=== PATIENT | female | born 1975 | race Caucasian/White ===

== ENCOUNTER 2017-02-14 12:17 | Emergency (ER) | payer SELFPAY ==
[~2017-02-14] VITALS: Ht 160 cm; Wt 62.0 kg
[2017-02-14] MEDS ORDERED: ONDANSETRON 4MG ODT PO ONE (15:30)
[2017-02-14 15:36] LABS: CLARITY URINE CLEAR (CLEAR); COLOR URINE YELLOW (YELLOW); GLUCOSE URINE NEGATIVE (NEGATIVE); KETONES URINE NEGATIVE (NEGATIVE); LEUKOCYTE ESTERASE URINE TRACE (NEGATIVE); NITRITE URINE NEGATIVE (NEGATIVE); OCCULT BLOOD URINE TRACE (NEGATIVE); PH URINE 5.5 (4.5-8.0); PROTEIN URINE NEGATIVE (NEGATIVE); SPECIFIC GRAVITY URINE 1.014 (1.005-1.030); UROBILINOGEN URINE 0.2 E.U./dL (0.2-1.0)
[2017-02-14 15:47] LABS: HCG SCREEN POSITIVE
[2017-02-14 15:56] LABS: BACTERIA URINE 1+; RBC URINE 0-2 /hpf (0-2); SQUAMOUS EPITHELIAL CELL URINE FEW /lpf (RARE/1+); WBC URINE 0-2 /hpf (0-2)
[2017-02-14 16:25] VITALS: BP 118/66
== END 2017-02-14 16:25 | disposition home or self-care (01) ==
LOC: ER 12:19
DX: O23.41 Unspecified infection of urinary tract in pregnancy, first trimester (principal); N39.0 Urinary tract infection, site not specified; O26.891 Other specified pregnancy related conditions, first trimester; R11.0 Nausea; Z3A.01 Less than 8 weeks gestation of pregnancy
CPT/HCPCS: 81001; 84703; 99283; Q0162; Z7610

== ENCOUNTER 2017-02-18 03:50 | Emergency (ER) | payer SELFPAY ==
[~2017-02-18] VITALS: Ht 162.6 cm; Wt 61.9 kg
[2017-02-18] MEDS ORDERED: ACETAMINOPHEN 325MG TABLET PO STA (06:03)
[2017-02-18 06:27] LABS: BASOPHILS % 1.1 % (0.0-2.0); EOSINOPHILS % 0.5 % (0.0-5.0); HEMATOCRIT. 39.5 % (36.0-48.0); HEMOGLOBIN. 13.3 g/dL (12.0-16.0); LYMPHOCYTES % 14.1 % (20.0-50.0); MEAN CORPUSCULAR HEMOGLOBIN 29.6 pg (28.0-32.0); MEAN CORPUSCULAR HGB CONC 33.7 g/dL (31.0-37.0); MEAN CORPUSCULAR VOLUME 87.8 fL (81.0-99.0); MEAN PLATELET VOLUME 7.5 fl (7.4-10.4); MONOCYTES % 4.4 % (2.0-8.0); NEUTROPHILS % 79.9 % (40.0-76.0); PLATELET 336 x1000/uL (130-400); RED CELL DISTRIBUTION WIDTH 13.8 % (11.6-14.6); WHITE BLOOD COUNT 9.9 x1000/uL (4.5-11.0)
[2017-02-18 06:31] LABS: CHLORIDE 104 mEq/L (98-107); INDEX HEMOLYSI 1 (1-3); INDEX ICTERIC 1 (1-4); INDEX LIPEMIC 1 (1-3)
[2017-02-18 06:38] LABS: ANION GAP 13; CALCIUM 8.6 mg/dL (8.5-10.1); CARBON DIOXIDE 26 mEq/L (21-32); UREA NITROGEN BLOOD 7 mg/dL (7-21); eGFR > 60 mL/min (>60)
[2017-02-18 06:43] LABS: B-HCG QUANTITATIVE 15 mIU/mL (<3)
[2017-02-18 06:44] LABS: CLARITY URINE TURBID (CLEAR); COLOR URINE RED (YELLOW); GLUCOSE URINE NEGATIVE (NEGATIVE); KETONES URINE NEGATIVE (NEGATIVE); LEUKOCYTE ESTERASE URINE 3+ (NEGATIVE); NITRITE URINE POSITIVE (NEGATIVE); OCCULT BLOOD URINE 2+ (NEGATIVE); PROTEIN URINE 2+ (NEGATIVE); SPECIFIC GRAVITY URINE 1.022 (1.005-1.030); UROBILINOGEN URINE 0.2 E.U./dL (0.2-1.0)
[2017-02-18 07:11] LABS: RBC URINE TNTC /hpf (0-2); WBC URINE 15-25 /hpf (0-2)
[2017-02-18 07:15] LABS: SQUAMOUS EPITHELIAL CELL URINE 1+ /lpf (RARE/1+)
[2017-02-18 07:32] LABS: BACTERIA URINE 1+
[2017-02-18] MEDS ORDERED: HYDROCODONE/ACETAMINOPHEN 5/325MG TABLET PO ONE (09:00)
[2017-02-18 09:04] VITALS: BP 121/71
== END 2017-02-18 09:05 | disposition home or self-care (01) ==
LOC: ER 03:50
DX: O03.9 Complete or unspecified spontaneous abortion without complication (principal); N39.0 Urinary tract infection, site not specified; R10.2 Pelvic and perineal pain; R03.0 Elevated blood-pressure reading, without diagnosis of hypertension
CPT/HCPCS: 36415; 76801; 76817; 80048; 81001; 81025; 84702; 85025; 86850; 86900; 86901; 99285; Z7610

== ENCOUNTER 2018-03-20 20:27 | Emergency (ER) | payer MEDICAID ==
[~2018-03-20] VITALS: Ht 162.6 cm; Wt 64.0 kg
[2018-03-21] MEDS ORDERED: ACETAMINOPHEN 325MG TABLET PO STA (01:22)
[2018-03-21 02:12] LABS: CLARITY URINE CLEAR (CLEAR); COLOR URINE YELLOW (YELLOW); KETONES URINE NEGATIVE (NEGATIVE); LEUKOCYTE ESTERASE URINE 2+ (NEGATIVE); NITRITE URINE NEGATIVE (NEGATIVE); OCCULT BLOOD URINE 3+ (NEGATIVE); PH URINE 6.5 (4.5-8.0); PROTEIN URINE NEGATIVE (NEGATIVE); SPECIFIC GRAVITY URINE 1.018 (1.005-1.030); UROBILINOGEN URINE 0.2 E.U./dL (0.2-1.0)
[2018-03-21 02:41] LABS: BASOPHILS % 0.4 % (0.0-2.0); EOSINOPHILS % 0.7 % (0.0-5.0); HEMATOCRIT. 31.3 % (36.0-48.0); HEMOGLOBIN. 10.8 g/dL (12.0-16.0); LYMPHOCYTES % 19.5 % (20.0-50.0); MEAN CORPUSCULAR HEMOGLOBIN 30.1 pg (28.0-32.0); MEAN CORPUSCULAR VOLUME 87.3 fL (81.0-99.0); MEAN PLATELET VOLUME 7.4 fl (7.4-10.4); MONOCYTES % 5.5 % (2.0-8.0); NEUTROPHILS % 73.9 % (40.0-76.0); PLATELET 399 x1000/uL (130-400); RED BLOOD CELL COUNT 3.59 mill/uL (4.2-5.4)
[2018-03-21 02:47] LABS: CHLORIDE 107 mEq/L (98-107)
[2018-03-21 02:50] LABS: PROTHROMBIN TIME 10.4 sec (9.4-11.6)
[2018-03-21 03:10] LABS: B-HCG QUANTITATIVE 22937 mIU/mL (<3)
[2018-03-21 04:45] VITALS: BP 100/60
== END 2018-03-21 04:45 | disposition home or self-care (01) ==
LOC: EDBD → ER 20:27
DX: O20.0 Threatened abortion (principal); O23.41 Unspecified infection of urinary tract in pregnancy, first trimester; Z3A.12 12 weeks gestation of pregnancy
CPT/HCPCS: 36415; 76805; 80053; 81003; 81025; 84702; 85025; 85610; 86900; 87086; 99285

== ENCOUNTER 2018-03-21 22:28 | Emergency (ER) | payer MEDICAID ==
[~2018-03-21] VITALS: Ht 165.1 cm; Wt 64.0 kg
[2018-03-22] MEDS ORDERED: SODIUM CHLORIDE 0.9% 1,000 ML IV ONE (00:37)
[2018-03-22 01:07] LABS: BASOPHILS % 0.2 % (0.0-2.0); EOSINOPHILS % 0.2 % (0.0-5.0); HEMATOCRIT. 32.7 % (36.0-48.0); LYMPHOCYTES % 8.9 % (20.0-50.0); MEAN CORPUSCULAR HEMOGLOBIN 29.4 pg (28.0-32.0); MEAN CORPUSCULAR VOLUME 87.4 fL (81.0-99.0); MEAN PLATELET VOLUME 7.2 fl (7.4-10.4); MONOCYTES % 2.9 % (2.0-8.0); NEUTROPHILS % 87.8 % (40.0-76.0); PLATELET 399 x1000/uL (130-400); RED BLOOD CELL COUNT 3.74 mill/uL (4.2-5.4); RED CELL DISTRIBUTION WIDTH 13.9 % (11.6-14.6)
[2018-03-22 01:12] LABS: CHLORIDE 106 mEq/L (98-107)
[2018-03-22 01:15] LABS: PROTHROMBIN TIME 10.1 sec (9.4-11.6)
[2018-03-22 01:24] LABS: CLARITY URINE CLEAR (CLEAR); COLOR URINE YELLOW (YELLOW); KETONES URINE NEGATIVE (NEGATIVE); LEUKOCYTE ESTERASE URINE 2+ (NEGATIVE); NITRITE URINE NEGATIVE (NEGATIVE); OCCULT BLOOD URINE 3+ (NEGATIVE); PH URINE 5.5 (4.5-8.0); PROTEIN URINE 1+ (NEGATIVE); SPECIFIC GRAVITY URINE 1.014 (1.005-1.030); UROBILINOGEN URINE 0.2 E.U./dL (0.2-1.0)
[2018-03-22 01:35] LABS: B-HCG QUANTITATIVE 22683 mIU/mL (<3)
[2018-03-22 01:42] LABS: *AMPHETAMINES SCREEN URINE NEGATIVE (NEGATIVE)
[2018-03-22 01:43] LABS: *BARBITURATES SCREEN URINE NEGATIVE (NEGATIVE); *BENZODIAZEPINES SCREEN URINE NEGATIVE (NEGATIVE); *COCAINE SCREEN URINE NEGATIVE (NEGATIVE); METHADONE URINE SCREEN NEGATIVE (NEGATIVE); OPIATES URINE SCREEN NEGATIVE (NEGATIVE); PHENCYCLIDINE URINE SCREEN NEGATIVE (NEGATIVE)
[2018-03-22 01:44] LABS: CANNABINOID URINE SCREEN NEGATIVE (NEGATIVE)
[2018-03-22] MEDS ORDERED: CEFTRIAXONE 1 G PREMIX 50 ML IV NR (03:00)
[2018-03-22 04:35] VITALS: BP 121/58
== END 2018-03-22 07:32 | disposition home or self-care (01) ==
LOC: ER 22:28
DX: O20.0 Threatened abortion (principal); O23.42 Unspecified infection of urinary tract in pregnancy, second trimester; Z3A.16 16 weeks gestation of pregnancy
CPT/HCPCS: 36415; 76815; 80053; 80305; 81003; 84702; 85025; 85610; 86850; 86900; 86901; 96361; 96365; 99285; J0696; J7030; Z7610